=== PATIENT | female | born 1985 | race Caucasian/White ===

== ENCOUNTER 2022-02-07 01:27 | Day surgery (SDC) | payer OTHER ==
[~2022-02-07] VITALS: Ht 157.5 cm; Wt 67.6 kg
[2022-02-07 04:50] LABS: BASO % 0.2 % (0.0-1.0); EOS % 0.2 % (0.0-3.0); HEMATOCRIT 40.7 % (36.0-47.0); HEMOGLOBIN 14.1 g/dl (12.0-15.5); LYMPH # 1.1 10^3/uL (1.5-5.0); LYMPH % 8.5 % (24.0-44.0); MEAN CORPUSCULAR HEMOGLOBIN 30.1 pg (27.0-33.0); MEAN CORPUSCULAR HGB CONC 34.6 g/dl (32.0-36.5); MONO # 0.6 10^3/uL (0.0-0.8); MONO % 4.6 % (2.0-8.0); NEUTROPHILS # 11.3 10^3/uL (1.5-8.5); PLATELET COUNT, AUTOMATED 274 10^3/uL (150-450); RED BLOOD COUNT 4.68 10^6/uL (4.00-5.40); WHITE BLOOD COUNT 13.2 10^3/uL (4.0-10.0)
[2022-02-07 05:06] LABS: RSV AMPLIFICATION NEGATIVE (NEGATIVE)
[2022-02-07] MEDS ORDERED: MORPHINE 2 MG/ML 1ML VIAL IV ONE (05:20)
[2022-02-07] MEDS ORDERED: ONDANSETRON 4MG/2ML VIAL IV ONE (05:20)
[2022-02-07] MEDS ORDERED: diphenhydrAMINE 50MG/ML VIAL (J1200) IV STA (05:39)
[2022-02-07] MEDS ORDERED: diphenhydrAMINE 50MG/ML VIAL (J1200) As Ordered ONE (05:40)
[2022-02-07] MEDS ORDERED: LIDOCAINE W/EPINEPHRINE 1% 20ML VIAL As Ordered ONE (08:56)
[2022-02-07] MEDS ORDERED: MIDAZOLAM INJ 2MG/2ML VIAL (J2250 PER 1MG) As Ordered ONE (10:13)
[2022-02-07] MEDS ORDERED: PHENYLephrine 500MCG 5ML (100MCG/ML) SYRINGE As Ordered ONE (10:13)
[2022-02-07] MEDS ORDERED: ROCURONIUM BROMIDE 50 MG/5 ML VIAL As Ordered ONE (10:13)
[2022-02-07] MEDS ORDERED: KETOROLAC 60MG 2ML VIAL As Ordered ONE (10:13)
[2022-02-07] MEDS ORDERED: ONDANSETRON 4MG/2ML VIAL As Ordered ONE (10:13)
[2022-02-07] MEDS ORDERED: LIDOCAINE 2% 100MG/5ML SDV (FOR ANES.) As Ordered ONE (10:13)
[2022-02-07] MEDS ORDERED: dexameTHASONE 4 MG/ML 1ML VIAL (J1100 PER 1MG) As Ordered ONE (10:13)
[2022-02-07] MEDS ORDERED: ACETAMINOPHEN 1000MG 100ML IV BTL (OFIRMEV) (J0131 PER 10MG) As Ordered ONE (10:13)
[2022-02-07] MEDS ORDERED: propofoL 200 MG/20 ML VIAL As Ordered ONE ×2 (10:13→10:45)
[2022-02-07] MEDS ORDERED: fentaNYL 250 MCG/5 ML INJECTION As Ordered ONE (10:13)
[2022-02-07] MEDS ORDERED: SUGAMMADEX SODIUM 500 MG/5 ML VIAL (BRIDION) As Ordered ONE (10:14)
[2022-02-07] MEDS ORDERED: METOCLOPRAMIDE INJ 10MG/2ML VIAL (J2765 PER 1) As Ordered ONE (10:18)
[2022-02-07] MEDS ORDERED: CLINDAMYCIN 600MG/50ML PREMIX BAG As Ordered ONE (10:23)
[2022-02-07] MEDS ORDERED: PERC5TAB12 PO (11:08)
[2022-02-07] MEDS ORDERED: ONDANSETRON 4MG/2ML VIAL IV PRN (11:15)
[2022-02-07] MEDS ORDERED: HYDROMORPHONE HCL 0.5 MG/ 0.5 ML SYRINGE (J1170 PER 1) IV PRN ×2 (11:15)
[2022-02-07] MEDS ORDERED: PROMETHAZINE 25MG/ML 1ML VIAL IV PRN (11:15)
[2022-02-07] MEDS ORDERED: oxyCODONE 5MG TAB PO PRN (11:15)
[2022-02-07] MEDS ORDERED: MEPERIDINE INJ 25 MG/ML VIAL (J2175) IV PRN (11:15)
[2022-02-07] MEDS ORDERED: LR 1,000 ML IV SCH (11:25)
[2022-02-07] MEDS ORDERED: PERCOCET 5MG/325MG TAB PO PRN (11:30)
[2022-02-07 12:59] VITALS: BP 101/58
[2022-02-07] MEDS ORDERED: IBUPROFEN 800 MG TAB PO SCH (18:00)
== END 2022-02-07 13:00 | disposition home or self-care (01) ==
LOC: EDBD 01:27 → M ED 01:27 → M SDC 01:28
PROVIDERS: ATTEND Obstetrics & Gynecology
DX: O00.102 Left tubal pregnancy without intrauterine pregnancy (principal); N99.4 Postprocedural pelvic peritoneal adhesions; N80.9 Endometriosis, unspecified; I45.9 Conduction disorder, unspecified; Z95.0 Presence of cardiac pacemaker; J45.909 Unspecified asthma, uncomplicated; Z88.0 Allergy status to penicillin; Z88.2 Allergy status to sulfonamides; Z87.891 Personal history of nicotine dependence; Z86.16 Personal history of COVID-19
CPT/HCPCS: 59151; 76801; 84702; 85025; 86850; 86900; 86901; 87631; 88305; 96374; 96375; 99285; J0131; J1100; J1200; J1885; J2250; J2270; J2370; J2405; J2765; J3010

== ENCOUNTER → 2023-06-12 | Outpatient (CLI) | payer OTHER ==
[~2023-06-12] MED LIST: PERC5TAB12 PO
[2023-06-12 14:46] LABS: IMMUNOGLOBULIN A 149.9 MG/DL (40-350)
[2023-06-12 14:49] LABS: FREE T4 1.26 NG/DL (0.89-1.76); THYROID STIMULATING HORMONE 0.735 uIU/ML (0.55-4.78)
== END ==
LOC: M LAB 13:02
PROVIDERS: ATTEND Internal Medicine Gastroenterology
DX: R19.7 Diarrhea, unspecified (principal)

== ENCOUNTER → 2023-09-08 | Day surgery (SDC) | payer OTHER ==
[~2023-09-08] VITALS: Ht 157.5 cm; Wt 67.0 kg
[~2023-09-08] MED LIST changes: +AZIT500T5 PO; +LIDOCAINE 2% 100MG/5ML SDV (FOR ANES.) As Ordered ONE; +NS 1,000 ML IV ONE; +PANT40TA29 PO; +propofoL 200 MG/20 ML VIAL As Ordered ONE; +propofoL 500 MG/50 ML VIAL As Ordered ONE
[2023-09-08 09:29] VITALS: TEMP 98.8
[2023-09-08 09:50] VITALS: BP 107/61; O2SAT 100
== END | disposition home or self-care (01) ==
LOC: M OPP 07:33
PROVIDERS: ATTEND Internal Medicine Gastroenterology
DX: K63.5 Polyp of colon (principal); K64.8 Other hemorrhoids; K52.9 Noninfective gastroenteritis and colitis, unspecified; Z80.0 Family history of malignant neoplasm of digestive organs; Z87.891 Personal history of nicotine dependence; Z79.899 Other long term (current) drug therapy; Z88.0 Allergy status to penicillin; Z88.2 Allergy status to sulfonamides